=== PATIENT | male | born 1980 | race Two or more races ===

== ENCOUNTER 2017-05-22 11:12 | Emergency (ER) | payer OTHER ==
--- NOTE | 2017-05-22 13:09 | RAD ---
INDICATION: LEFT elbow pain following injury. COMPARISON: No relevant prior exams available on the [facility] PACS for comparison. TECHNIQUE: AP, lateral, and oblique views LEFT elbow. REPORT AND IMPRESSION: No definitive fat pad displacement to indicate joint effusion. Negative for fracture or malalignment. Severe soft tissue swelling most prominent over the dorsal aspect. No conspicuous foreign body or subcutaneous emphysema evident.
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
[2017-05-22 13:38] VITALS: BP 159/83
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
== END 2017-05-22 13:38 | disposition home or self-care (01) ==
LOC: ED 11:12
DX: S60.212A Contusion of left wrist, initial encounter (principal); S50.02XA Contusion of left elbow, initial encounter; Y35.813A Legal intervention involving manhandling, suspect injured, initial encounter; Y92.143 Cell of prison as the place of occurrence of the external cause